=== PATIENT | female | born 1955 | race Caucasian/White ===

== ENCOUNTER 2017-03-11 06:27 | Day surgery (SDC) | payer OTHER ==
[~2017-03-11 06:27] MED LIST: Lactated Ringers 1,000 ML IV SCH
[2017-03-11] MEDS ORDERED: Sodium Chloride 0.9% 1,000 ML IV SCH (06:30)
[2017-03-11] MEDS ORDERED: Midazolam 1 MG/ML 2 ML SDV ONE (07:06)
[2017-03-11] MEDS ORDERED: fentaNYL 100 MCG/2 ML SDV ONE (07:06)
[2017-03-11] MEDS ORDERED: Propofol 200 MG/20 ML SDV ONE (07:06)
[2017-03-11] MEDS ORDERED: Ondansetron 4 MG/2 ML SDV ONE (07:58)
[2017-03-11 09:14] VITALS: BP 102/66
--- NOTE | 2017-03-12 11:39 | OR ---
DATE OF PROCEDURE: 03/11/2017 PROCEDURE: Colonoscopy. FINDINGS: 1. Sigmoid colon polyp, approximately 5 mm, completely removed using cold biopsy forceps. 2. Tortuosities noted in the sigmoid colon and again in the ascending colon. RISKS: Risks, benefits, alternatives, limitations including, but not limited to infection, bleeding, and perforation were explained to the patient who wished to proceed. PREOPERATIVE DIAGNOSIS: Screening colonoscopy/history of colon polyps. POSTOPERATIVE DIAGNOSIS: Screening colonoscopy/history of colon polyps. PROCEDURE IN DETAIL: The patient was placed in left lateral decubitus position. Digital rectal exam was performed without abnormality. The scope was introduced and advanced atraumatically to the ileocecal valve. The scope was brought back to the ascending, transverse, descending colon, and retroflexed. The aforementioned polyps were identified and completely removed. No old or new blood. No diverticulosis. No other abnormalities. The patient tolerated the procedure well. Hermes Pickard MD /[id number]
== END 2017-03-11 09:36 | disposition home or self-care (01) ==
LOC: JP.SDS 06:27
PROVIDERS: ATTEND Surgery
DX: Z12.11 Encounter for screening for malignant neoplasm of colon (principal); D12.5 Benign neoplasm of sigmoid colon; Z86.010 Personal history of colon polyps
CPT/HCPCS: 45380; J2250; J2405; J2704; J3010; J7040; 88305

== ENCOUNTER 2020-02-16 07:26 | Day surgery (SDC) | payer OTHER ==
[2020-02-16] MEDS ORDERED: Sodium Chloride 0.9% 1,000 ML IV SCH (08:00)
[2020-02-16] MEDS ORDERED: fentaNYL 100 MCG/2 ML SDV ONE (08:03)
[2020-02-16] MEDS ORDERED: Midazolam 1 MG/ML 2 ML SDV ONE (08:03)
[2020-02-16] MEDS ORDERED: Propofol 200 MG/20 ML SDV ONE (08:03)
[2020-02-16 11:03] VITALS: BP 115/72; PULSE 71
--- NOTE | 2020-02-16 16:37 | OR ---
DATE OF PROCEDURE: 02/16/2020 SURGEON: Hermes Pickard MD PROCEDURE: Colonoscopy. FINDINGS: Descending colon polyp, approximately 5 mm, completely removed using hot snare wire device. COMPLICATION: None. SOCIAL INSURANCE ADMINISTRATOR: None. ANESTHESIA: MAC. PREOPERATIVE DIAGNOSIS: Screening colonoscopy. POSTOPERATIVE DIAGNOSIS: Screening colonoscopy. RISKS: Risks, benefits, alternatives, and limitations including, but not limited to infection, bleeding, perforation, false positives and false negatives were explained to the patient, who wished to proceed. PROCEDURE IN DETAIL: The patient was placed in left lateral decubitus position. Digital rectal exam was performed without abnormality. Scope was then advanced through the ascending, transverse, descending colon, and retroflexed. In the descending colon, the aforementioned polyp was identified and completely removed using hot snare wire device. No abnormalities on retroflexion. Prep was moderately acceptable with approximately 90% of the luminal surface could be seen. The patient tolerated the procedure well. Hermes Pickard MD /[id number]
== END 2020-02-16 10:45 | disposition home or self-care (01) ==
LOC: JP.SDS 07:26
PROVIDERS: ATTEND Surgery
DX: Z12.11 Encounter for screening for malignant neoplasm of colon (principal); D12.4 Benign neoplasm of descending colon; Z88.0 Allergy status to penicillin
CPT/HCPCS: 45385; 88305; J2250; J2704; J3010; J7030